=== PATIENT | male | born 1985 | race Two or more races ===

== ENCOUNTER 2019-01-11 19:31 | Emergency (ER) | payer SELFPAY ==
[~2019-01-11] VITALS: Ht 182.9 cm; Wt 70.0 kg
[2019-01-11 19:39] VITALS: BP 120/80
--- NOTE | 2019-01-11 19:43 | NUR ---
PA TO TRIAGE ROOM AND REMOVES SUTURES
== END 2019-01-11 19:47 | disposition home or self-care (01) ==
LOC: ED 19:41
DX: S01.81XD Laceration without foreign body of other part of head, subsequent encounter (principal); J45.909 Unspecified asthma, uncomplicated; X58.XXXD Exposure to other specified factors, subsequent encounter
CPT/HCPCS: 99281